=== PATIENT | male | born 1955 | race Two or more races ===

== ENCOUNTER 2023-02-27 07:57 | Inpatient (IN) | payer OTHER ==
[~2023-02-27] VITALS: Ht 167.6 cm; Wt 66.1 kg
[2023-02-27] MEDS ORDERED: LACTATED RINGER'S 1,000 ML IV ONE (08:15)
[2023-02-27] MEDS ORDERED: cefTRIAXone 1GM/50ML D5W 50 ML IV ONE (08:15)
[2023-02-27] MEDS ORDERED: SODIUM CHLORIDE 0.9% 1,000 ML IV ONE (08:30)
[2023-02-27 08:34] LABS: Urine WBC None Seen /hpf (0 - 3)
[2023-02-27 08:42] LABS: Basophils # (auto) 0.1 10 ^3/uL (0-0.2); Basophils % (auto) 0.5 % (0.0-2.0); Eosinophils # (auto) 0 10 ^3/uL (0-0.8); Eosinophils % (auto) 0.2 % (0.0-7.0); Hematocrit 42.2 % (41.0-53.0); Hemoglobin 14.5 g/dL (13.5-17.5); Lymphocytes # (auto) 1.1 10 ^3/uL (0.4-5.4); Lymphocytes % (auto) 9.7 % (10.0-50.0); Mean Corpuscular Hemoglobin 33.8 pg (28.0-32.0); Mean Corpuscular Hgb Conc. 34.3 g/dL (32.0-36.0); Mean Corpuscular Volume 98.7 fL (80.0-100.0); Monocytes # (auto) 0.7 10 ^3/uL (0-1.3); Monocytes % (auto) 6.3 % (0.0-12.0); Neutrophils # (auto) 9.6 10 ^3/uL (1.6-8.6); Neutrophils % (auto) 83.3 % (37.0-80.0); Nucleated Red Blood Cells % 0.1 %; Red Blood Cells 4.28 10^6/uL (4.5-5.90); Red Cell Distribution Width 13.6 % (11.8-14.3); White Blood Cell 11.5 10^3/uL (4.4-10.8)
[2023-02-27 08:44] LABS: Urine Bacteria NONE SEEN /hpf (None Seen); Urine Blood 3+ /uL (Negative)
[2023-02-27 08:59] LABS: Albumin 3.8 g/dL (3.4-5.0); Potassium 4.2 mmol/L (3.5-5.1)
[2023-02-27 09:02] LABS: Bilirubin, Total 0.5 mg/dL (0.2-1.0)
[2023-02-27 16:58] LABS: Hematocrit 35.1 % (41.0-53.0)
[2023-02-27] MEDS ORDERED: TAMS0.4C36 PO (17:42)
[2023-02-28 05:37] LABS: Basophils # (auto) 0.1 10 ^3/uL (0-0.2); Basophils % (auto) 0.6 % (0.0-2.0); Eosinophils # (auto) 0.2 10 ^3/uL (0-0.8); Hematocrit 35.1 % (41.0-53.0); Hemoglobin 12.3 g/dL (13.5-17.5); Lymphocytes # (auto) 1.4 10 ^3/uL (0.4-5.4); Mean Corpuscular Hemoglobin 34.1 pg (28.0-32.0); Mean Corpuscular Volume 97.5 fL (80.0-100.0); Monocytes % (auto) 10.6 % (0.0-12.0); Neutrophils % (auto) 72.8 % (37.0-80.0); Nucleated Red Blood Cells % 0.1 %; Red Cell Distribution Width 13.3 % (11.8-14.3); White Blood Cell 9.7 10^3/uL (4.4-10.8)
[2023-02-28 05:57] LABS: Albumin 2.9 g/dL (3.4-5.0); Calcium 8.2 mg/dL (8.5-10.1); Potassium 3.8 mmol/L (3.5-5.1)
[2023-02-28 06:00] LABS: BUN/Creatinine Ratio 15.2 (10.0-20.0); Bilirubin, Total 0.6 mg/dL (0.2-1.0); Total Protein 5.6 g/dL (6.4-8.2)
[2023-02-28] MEDS: cefTRIAXone 1GM/50ML D5W 50 ML IV SCH (08:54)
[2023-02-28 10:51] VITALS: BP 133/64
[2023-02-28] MEDS ORDERED: CEPH-510 PO (11:45)
[2023-02-28 13:00] VITALS: BP 133/64
[2023-02-28] MEDS ORDERED: VANCOMYCIN 1GM/250ML 250 ML IV ONE (16:45)
[2023-02-28] MEDS ORDERED: VANCOMYCIN PER PHARMACY 0 MG IV SCH (16:45)
[2023-02-28 17:00] VITALS: BP 119/61
[2023-02-28] MEDS: SODIUM CHLORIDE 0.9% 1,000 ML IV SCH (17:50)
[2023-02-28] MEDS ORDERED: MELATONIN 5 MG TAB PO PRN (20:45)
[2023-02-28] MEDS: ACETAMINOPHEN 325 MG TAB PO PRN (21:54)
[2023-02-28 22:00] VITALS: BP 109/55
[2023-02-28] MEDS ORDERED: NICOTINE 7MG/24HR TOPICAL PATCH TD SCH (22:00)
[2023-03-01 05:00] VITALS: BP 122/68
[2023-03-01] MEDS: VANCOMYCIN 1GM/250ML 250 ML IV SCH ×2 (05:53→20:34)
[2023-03-01] MEDS: ACETAMINOPHEN 325 MG TAB PO PRN (05:58)
[2023-03-01] MEDS: SODIUM CHLORIDE 0.9% 1,000 ML IV SCH ×3 (05:58→22:45)
[2023-03-01 06:04] LABS: Basophils # (auto) 0 10 ^3/uL (0-0.2); Eosinophils # (auto) 0.1 10 ^3/uL (0-0.8); Lymphocytes # (auto) 0.9 10 ^3/uL (0.4-5.4); Mean Corpuscular Hemoglobin 34.1 pg (28.0-32.0)
[2023-03-01 06:08] LABS: Basophils % (auto) 0.5 % (0.0-2.0); Eosinophils % (auto) 0.6 % (0.0-7.0); Hematocrit 36.5 % (41.0-53.0); Hemoglobin 12.8 g/dL (13.5-17.5); Lymphocytes % (auto) 8.1 % (10.0-50.0); Mean Corpuscular Volume 97.5 fL (80.0-100.0); Monocytes # (auto) 1.1 10 ^3/uL (0-1.3); Monocytes % (auto) 10.8 % (0.0-12.0); Neutrophils # (auto) 8.5 10 ^3/uL (1.6-8.6); Red Blood Cells 3.74 10^6/uL (4.5-5.90); Red Cell Distribution Width 13.2 % (11.8-14.3); White Blood Cell 10.6 10^3/uL (4.4-10.8)
[2023-03-01 06:24] LABS: Calcium 8.1 mg/dL (8.5-10.1)
[2023-03-01 06:26] LABS: BUN/Creatinine Ratio 12.2 (10.0-20.0)
[2023-03-01] MEDS: cefTRIAXone 1GM/50ML D5W 50 ML IV SCH (08:55)
[2023-03-01 09:16] VITALS: BP 108/70
[2023-03-01 12:00] VITALS: BP 123/75
[2023-03-01 16:00] VITALS: BP 115/70
[2023-03-01 22:00] VITALS: BP 110/63
[2023-03-01] MEDS: NICOTINE 7MG/24HR TOPICAL PATCH TD SCH (22:22)
[2023-03-02 05:00] VITALS: BP 105/65
[2023-03-02 08:53] VITALS: BP 106/62
[2023-03-02] MEDS: cefTRIAXone 1GM/50ML D5W 50 ML IV SCH (09:16)
[2023-03-02] MEDS: SODIUM CHLORIDE 0.9% 1,000 ML IV SCH ×2 (09:16→17:40)
[2023-03-02 13:00] VITALS: BP 105/62
[2023-03-02 17:00] VITALS: BP 104/55
[2023-03-02 20:07] LABS: Basophils # (auto) 0.1 10 ^3/uL (0-0.2); Basophils % (auto) 0.8 % (0.0-2.0); Eosinophils # (auto) 0.3 10 ^3/uL (0-0.8); Eosinophils % (auto) 3.3 % (0.0-7.0); Hematocrit 33.1 % (41.0-53.0); Hemoglobin 11.5 g/dL (13.5-17.5); Lymphocytes # (auto) 1.3 10 ^3/uL (0.4-5.4); Lymphocytes % (auto) 14.4 % (10.0-50.0); Mean Corpuscular Hemoglobin 33.6 pg (28.0-32.0); Mean Corpuscular Hgb Conc. 34.6 g/dL (32.0-36.0); Mean Corpuscular Volume 96.9 fL (80.0-100.0); Monocytes # (auto) 1.6 10 ^3/uL (0-1.3); Monocytes % (auto) 16.8 % (0.0-12.0); Neutrophils % (auto) 64.7 % (37.0-80.0); Nucleated Red Blood Cells % 0.1 %; Red Blood Cells 3.42 10^6/uL (4.5-5.90); Red Cell Distribution Width 13.2 % (11.8-14.3); White Blood Cell 9.2 10^3/uL (4.4-10.8)
[2023-03-02] MEDS: NICOTINE 7MG/24HR TOPICAL PATCH TD SCH (21:38)
[2023-03-02 22:00] VITALS: BP 104/65
[2023-03-03] MEDS: ACETAMINOPHEN 325 MG TAB PO PRN (02:31)
[2023-03-03] MEDS: SODIUM CHLORIDE 0.9% 1,000 ML IV SCH (04:45)
[2023-03-03 05:00] VITALS: BP 102/57
[2023-03-03 09:00] VITALS: BP 104/58
[2023-03-03] MEDS: cefTRIAXone 1GM/50ML D5W 50 ML IV SCH (09:35)
[2023-03-03 13:00] VITALS: BP 118/60
== END 2023-03-03 15:00 | disposition short-term general hospital (02) | DRG 690 ==
LOC: ER 07:57 → OVERFLOW 17:42 → CENTRAL 02-28 10:47
PROVIDERS: ADMIT Registered Nurse; ATTEND Internal Medicine
DX: N39.0 Urinary tract infection, site not specified (principal); F17.210 Nicotine dependence, cigarettes, uncomplicated; M54.50 Low back pain, unspecified; R19.09 Other intra-abdominal and pelvic swelling, mass and lump; N35.919 Unspecified urethral stricture, male, unspecified site; Z85.048 Personal history of other malignant neoplasm of rectum, rectosigmoid junction, and anus; Z93.3 Colostomy status; Z86.73 Personal history of transient ischemic attack (TIA), and cerebral infarction without residual deficits; Z92.3 Personal history of irradiation; N40.1 Benign prostatic hyperplasia with lower urinary tract symptoms
CPT/HCPCS: 36415; 74176; 80048; 80053; 80202; 81001; 85014; 85018; 85025; 86900; 86901; 87040; 87077; 87086; 87186; 87426; G0378; J0696

== ENCOUNTER 2024-08-28 03:58 | Emergency (ER) | payer OTHER ==
[~2024-08-28] VITALS: Ht 167.6 cm; Wt 63.6 kg
[~2024-08-28 03:58] MED LIST: CIPR-173 PO; TAMS0.4C39 PO
--- NOTE | 2024-08-28 04:45 | ED.PDOC ---
History of Present Illness HPI Comments 68 y/o M, with Hx of colorectal CA s/p radiation and colostomy, mitral valve prolapse, and EtOH, marijuana, and tobacco use, presents with c/o non-radiating, sternal chest pain for the past 4-5 days. Patient reports "tightness" and "pressure-like" chest pain that wanes in severity and is at its worse during the day since initial unprovoked onset. Patient states on having chest pain in the past that, however, feels different from today's mild pain. Patient admits to being medically cleared of mitral valve prolapse or any significant cardiac Dx via workup from his biological photographer that he sees in addition to being physically active and working. Patient still informs of tobacco use with 40 year prior Hx. Patient comments on no recent stress, injuries, sick contact, travel, or spoiled food intake. Patient endorses on no further relevant or pertinent past medical, surgical, or family Hx. Patient denies having any shortness of breath, palpitations, nausea, vomiting, cough, fever, chills, or other associated symptoms or modifiers at this time. Chief Complaint: Shortness of Breath Time Seen by MD: 04:20 Primary Care Provider: [facility] Reviewed Notes: Nurses Notes, Medications, Allergies Allergies: Coded Allergies: NO KNOWN ALLERGIES (Unverified , 02/27/23) Home Meds Active Scripts Ciprofloxacin Hcl (Cipro) 500 Mg Tab, 1 TAB PO BID, #14 TAB Prov:KAUSHAL METZGER MD 12/17/23 Reported Medications Tamsulosin Hcl (Tamsulosin Hcl) 0.4 Mg Cap, 1 CAP PO DAILY 02/27/23 Information Source: Patient Mode of Arrival: Ambulatory Severity: Moderate Timing: Days Duration: Since onset Prehospital treatment: None Past Medical History PAST MEDICAL HISTORY: Cancer (colorectal cancer), UTI'S Past Medical History (Other): recurrent hemorrhagic cystitis, mitral valve prolapse Surgical History: Appendectomy, Hernia Repair Surgical History (Other): colostomy bag Family History Family History: Reviewed,noncontributory to illness, Unknown Social History Smoker: Cigarettes Alcohol: Occasionally Drugs: Marijuana Lives In: Home Physical Exam General Appearance: No Apparent Distress, Normal HEENT: Normal ENT Inspection, Pharynx Normal, TMs Normal Neck: Full Range of Motion, Non-Tender, Normal, Normal Inspection Respiratory: Chest Non-Tender, Lungs Clear, No Accessory Muscle Use, No Respiratory Distress, Normal Breath Sounds Cardiovascular: No Edema, No JVD, No Murmur, No Gallop, Normal Peripheral Pulses, Regular Rate/Rhythm Breast Exam: Deferred Gastrointestinal: No Organomegaly, Non Tender, No Pulsatile Mass, Normal Bowel Sounds, Soft Genitalia: Deferred Pelvic: Deferred Rectal: Deferred Extremities: No calf tenderness, Normal capillary refill, Normal inspection, Normal range of motion, Non-tender, No pedal edema Musculoskeletal : Apperance: Normal Neurologic: Alert, technical services assistant II-XII nml as Tested, No Motor Deficits, Normal Affect, Normal Mood, No Sensory Deficits Cerebellar Function: Normal Reflexes: Normal Skin: Dry, Normal Color, Warm Lymphatic: No Adenopathy Was a procedure done? Was a procedure done?: No Differential Dx Considerations may include: ACS, CHF, viral syndrome X-Ray, Labs, Meds, VS Vital Signs Date Time Temp Pulse Resp B/P (MAP) Pulse Ox O2 Delivery O2 Flow Rate FiO2 08/28/24 05:01 97.6 81 11 149/85 (106) 96 97.6 08/28/24 05:01 81 11 96 Room Air* 0 21 08/28/24 04:18 64 08/28/24 04:08 98.4 96 18 127/87 (100) 98 Lab Test 08/28/24 04:50 Range/Units White Blood Count 7.4 4.4-10.8 10^3/uL Red Blood Count 4.92 4.5-5.90 10^6/uL Hemoglobin 16.6 13.5-17.5 g/dL Hematocrit 48.5 41.0-53.0 % Mean Corpuscular Volume 98.6 80.0-100.0 fL Mean Corpuscular Hemoglobin 33.7 H 28.0-32.0 pg Mean Corpuscular Hemoglobin Concent 34.2 32.0-36.0 g/dL Red Cell Distribution Width 13.2 11.8-14.3 % Platelet Count 274 140-450 10^3/uL Mean Platelet Volume 7.7 6.9-10.8 fL Neutrophils (%) (Auto) 70.5 37.0-80.0 % Lymphocytes (%) (Auto) 16.0 10.0-50.0 % Monocytes (%) (Auto) 9.1 0.0-12.0 % Eosinophils (%) (Auto) 3.3 0.0-7.0 % Basophils (%) (Auto) 1.1 0.0-2.0 % Neutrophils # (Auto) 5.2 1.6-8.6 10 ^3/uL Lymphocytes # (Auto) 1.2 0.4-5.4 10 ^3/uL Monocytes # (Auto) 0.7 0-1.3 10 ^3/uL Eosinophils # (Auto) 0.2 0-0.8 10 ^3/uL Basophils # (Auto) 0.1 0-0.2 10 ^3/uL Nucleated Red Blood Cells 0.0 % Sodium Level 140 136-145 mmol/L Potassium Level 4.3 3.5-5.1 mmol/L Chloride Level 107 98-107 mmol/L Carbon Dioxide Level 29 20-31 mmol/L Anion Gap 4 L 5-15 Blood Urea Nitrogen 13 9-23 mg/dL Creatinine 1.01 0.700-1.30 mg/dL Glomerular Filtration Rate Calc 82 >90 mL/min BUN/Creatinine Ratio 12.9 10.0-20.0 Serum Glucose 107 H 74-106 mg/dL Calcium Level 10.5 H 8.7-10.4 mg/dL Troponin I High Sensitivity 8 </=54 ng/L B-Type Natriuretic Peptide 13.21 0-100 pg/mL [place] [id number] Ph: [phone] DIAGNOSTIC IMAGING Diagnostic Imaging Report : [id number] Signed PATIENT: FAB DODD ACCT: [id number] UNIT: [id number] : 1955 LOC: ER ROOM / BED: / AGE / SEX: 68 / M ADM STATUS: REG ER SERVICE [id number] ORDERING PHYSICIAN: MARIO GARVEY MD PROCEDURE(s): CXR2 - CHEST TWO VIEWS ROUTINE REASON: chest pain ORDER NUMBER(s): [id number], ACCESSION NUMBER(s): [id number] CHEST RADIOGRAPH Indication:chest pain Technique: Frontal and lateral view of the chest was obtained Comparison: None FINDINGS: Lines and Tubes: None Lungs: Clear Pleura: No effusion. No pneumothorax. Cardiomediastinal contours: Unremarkable Bones: Unremarkable IMPRESSION: No evidence of acute disease. ATED BY: MAGDY LUTZ MD DICTATED DATE/TIME: 08/28/24450 SIGNED BY: MAGDY LUTZ MD SIGNED DATE/TIME: 08/28/24450 CC: Time of 1ST Reevaluation: 05:41 Reevaluation 1ST: Improved Patient Education/Counseling: Diagnosis, Treatment Family Education/Counseling: No Family Present Departure 1 Departure Time of Disposition: 05:42 Impression: Primary Impression: Acute chest pain Disposition: 01 HOME / SELF CARE / HOMELESS Condition: Stable Additional Instructions: You presented today with chest pain. Your workup today was benign including labs, troponin, EKG, chest x-ray. Your pain may be from musculoskeletal strain, acid reflux, anxiety, or many other factors. It is important to follow up with your regular doctor within 1 week. If your symptoms worsen or you have any other concerns please return to the emergency room. Discharged With: Self Critical Care Note Critical Care Time?: Yes Critical care comment: Acute chest pain Authorized and Performed by: Mario Garvey MD Total critical care time: Approximately 33 minutes Due to a high probability of clinically significant, life threatening deterioration, the patient required my highest level of preparedness to intervene emergently and I personally spent this critical care time directly and personally managing the patient. This critical care time included obtaining a history; examining the patient; pulse oximetry; ordering and review of studies; arranging urgent treatment with development of a management plan; evaluation of patient's response to treatment; frequent reassessment; and, discussions with other providers. This critical care time was performed to assess and manage the high probability of imminent, life-threatening deterioration that could result in multi-organ failure. It was exclusive of separately billable procedures and treating other patients and teaching time. Please see my other sections and the rest of the note for further information on patient assessment and treatment. Stability Stability form required: No Heart Score Heart Score: Heart Score Response (Comments) Value History Slightly Suspicious 0 EKG Normal 0 Age >65 2 Risk Factors 1 or 2 risk factors 1 Troponin Normal limit 0 Total 3 I personally scribed for MARIO GARVEY MD ([email or web address]) on 08/28/24 at 04:45. Elec tronically submitted by Moy Chow ([email or web address]). I personally scribed for MARIO GARVEY MD ([email or web address]) on 08/28/24 at 05:38. Electronically submitted by Moy Chow ([email or web address]). MARIO GARVEY MD Aug 28, 2024 04:45
--- NOTE | 2024-08-28 04:55 | DVH ---
CHEST RADIOGRAPH Indication:chest pain Technique: Frontal and lateral view of the chest was obtained Comparison: None FINDINGS: Lines and Tubes: None Lungs: Clear Pleura: No effusion. No pneumothorax. Cardiomediastinal contours: Unremarkable Bones: Unremarkable IMPRESSION: No evidence of acute disease.
[2024-08-28 05:01] VITALS: PULSE 81; RESP 11; TEMP 97.6; O2SAT 96
[2024-08-28 05:11] LABS: Basophils # (auto) 0.1 10 ^3/uL (0-0.2); Basophils % (auto) 1.1 % (0.0-2.0); Eosinophils # (auto) 0.2 10 ^3/uL (0-0.8); Eosinophils % (auto) 3.3 % (0.0-7.0); Hematocrit 48.5 % (41.0-53.0); Hemoglobin 16.6 g/dL (13.5-17.5); Lymphocytes # (auto) 1.2 10 ^3/uL (0.4-5.4); Mean Corpuscular Hemoglobin 33.7 pg (28.0-32.0); Mean Corpuscular Hgb Conc. 34.2 g/dL (32.0-36.0); Mean Corpuscular Volume 98.6 fL (80.0-100.0); Monocytes # (auto) 0.7 10 ^3/uL (0-1.3); Monocytes % (auto) 9.1 % (0.0-12.0); Neutrophils # (auto) 5.2 10 ^3/uL (1.6-8.6); Neutrophils % (auto) 70.5 % (37.0-80.0); Platelet Count (auto) 274 10^3/uL (140-450); Red Blood Cells 4.92 10^6/uL (4.5-5.90); Red Cell Distribution Width 13.2 % (11.8-14.3); White Blood Cell 7.4 10^3/uL (4.4-10.8)
[2024-08-28 05:24] LABS: Chloride 107 mmol/L (98-107); Potassium 4.3 mmol/L (3.5-5.1); Sodium 140 mmol/L (136-145)
[2024-08-28 05:25] LABS: Anion Gap 4 (5-15); Carbon Dioxide 29 mmol/L (20-31)
[2024-08-28 05:26] LABS: Calcium 10.5 mg/dL (8.7-10.4)
[2024-08-28 05:30] LABS: Glucose 107 mg/dL (74-106)
[2024-08-28 05:31] LABS: BUN/Creatinine Ratio 12.9 (10.0-20.0); Blood Urea Nitrogen 13 mg/dL (9-23)
[2024-08-28 06:10] VITALS: BP 115/69; PULSE 57; RESP 10; O2SAT 98
--- NOTE | 2024-08-28 10:45 | ECG ---
[facility] Test Date: 2024-08-28 Test Time: 04:18:45 Pat Name: FAB DODD Department: ER Room: Gender: M Special Systems Technician: : 1955 Requested By: MARIO GARVEY Order Number: [id number] Reading MD: Huber Hess Measurements Intervals Sebastian Rate: 64 P: 82 KS: 188 QRS: 85 QRSD: 115 T: 74 QT: 418 QTc: 432 Interpretive Statements Sinus rhythm Incomplete right bundle branch block Electronically Signed On 08-28-2024 12:54:38 PST by Huber Hess Please click the below link to view image of tracing.
== END 2024-08-28 06:15 | disposition home or self-care (01) ==
LOC: ER 03:58
DX: R07.89 Other chest pain (principal); F17.210 Nicotine dependence, cigarettes, uncomplicated; F15.90 Other stimulant use, unspecified, uncomplicated; Z85.048 Personal history of other malignant neoplasm of rectum, rectosigmoid junction, and anus; Z90.49 Acquired absence of other specified parts of digestive tract; Z93.3 Colostomy status; Z98.890 Other specified postprocedural states; Z79.899 Other long term (current) drug therapy
CPT/HCPCS: 36415; 71046; 80048; 83880; 84484; 85025; 93005